=== PATIENT | male | born 1975 ===

== ENCOUNTER → 2021-03-20 | Outpatient (CLI) | payer OTHER ==
[~2021-03-20] MED LIST: AMLO-186 PO; OMEP20CA16 PO; VALS160T3 PO
== END ==
LOC: LAB 13:23
PROVIDERS: ATTEND Surgery
DX: Z01.812 Encounter for preprocedural laboratory examination (principal); Z20.822 Contact with and (suspected) exposure to COVID-19
CPT/HCPCS: U0003

== ENCOUNTER → 2021-03-25 | Day surgery (SDC) | payer OTHER ==
[~2021-03-25] MED LIST changes: +ACETAMINOPHEN 500 MG TABLET PO ONE; +BUPIVACAINE-EPI 0.25%-1:200000 MPF 30 ML VIAL. INJ ONE; +DEXAMETHASONE SOD PHOS 20 MG/5 ML VIAL. ONE; +GLYCOPYRROLATE 1 MG/5 ML VIAL. ONE; +IPRATRPIUM/ALBUTEROL 0.5/2.5MG 3 ML NEBU. NEB PRN; +IV RINGERS SOLUTION,LACTATED 1,000 ML IV SCH; +LIDOCAINE 2% PF 5 ML VIAL. ONE; +MIDAZOLAM HCL PF 2 MG/2 ML VIAL. IV ONE; +MIDAZOLAM HCL PF 2 MG/2 ML VIAL. ONE; +NEOSTIGMINE 10 MG/10 ML VIAL. ONE; +ONDANSETRON PF 4 MG/2 ML VIAL. IV PRN; +ONDANSETRON PF 4 MG/2 ML VIAL. ONE; +OXYC-325 PO; +PROPOFOL 10,000 MCG/ML (20ML) VIAL IV ONE; +ROCURONIUM 50 MG/5 ML VIAL. ONE; +SEVOFLURANE 31 TO 60 MINUTES. IH ONE
--- NOTE | 2021-03-25 11:22 | PDOC4 ---
Operative Report DATE March 252021-05-02 Preop Diagnosis Umbilical hernia Post-op Diagnosis Same Operation Performed Umbilical hernia repair Patient is a 46-year-old male is an umbilical hernia. Procedure umbilical hernia repairs explained to the patient detail risk benefits were also discussed including bleeding infection alternatives to this procedure also discussed with the patient who seemed to understand and gave a verbal written consent had procedure performed. Patient was taken to the operating room placed in the supine position general anesthesia was initiated once patient was sleeping intubated his abdomen was prepped and draped usual sterile fashion using ChloraPrep. Area around the umbilicus was injected quarter percent Marcaine with epinephrine incision was made with 15 blade scalpel is carried down through the subcutaneous tissue using electrocautery right hemostasis freeing up the hernia sac which was excised and sent for pathology. Hernia defect was then closed with a [id number] 0 Vicryl suture. Deep subcutaneous layer was closed with a running 3-0 Vicryl and the skin was reapproximated for subcuticular Monocryl Mastisol Steri-Strips and island dressings were applied. Patient was awakened and extubated in the operating room taken to recovery in stable condition all sponge instrument needle counts listed as correct estimated blood loss 5 mL Surgeon Tavo ANESTHESIA PROPOSED: GENERAL, LOCAL Blood Loss 5 mL Specimen Hernia sac and contents Complications None MIRA BRADFORD MD Mar 25, 2021 11:22
--- NOTE | 2021-03-25 11:32 | DISCH ---
DISCHARGE INSTRUCTIONS-DC Condition on Discharge Condition on Discharge: Stable Activity after Discharge Activity Instructions for Disc: Avoid exertion Diet after Discharge Diet after Discharge: Regular Wound/Incision Care Other wound/incision instructi: May shower in 24 hours Contacting the DRAnselmo after DC Call your doctor for: If your condition worsens Follow-Up Follow up with: Dr. Bradford in 2 weeks MIRA BRADFORD MD Mar 25, 2021 11:32
[2021-03-25 12:29] VITALS: BP 137/86
--- NOTE | 2021-03-27 17:09 | PATHOLOGY ---
[facility] Accession Number: [id number] . 01 Material submitted: . umbilicus - HERNIA CONTENTS . 01 Clinical history: . UMBILICAL HERNIA REPAIR NO MESH . 02 Diagnosis: Segment of mesothelial-lined fibromembranous/fibroadipose tissue and separate segment of fibroadipose tissue, umbilical hernia repair: - Hernia sac showing focal chronic inflammation. 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 (JPM:osmar; 03/27/2021) [facility] 03/27/2021 1215 Local . 02 Electronically signed: . Will Kwan MD, Pathologist NPI- [id number] . 01 Gross description: . Fixative: Formalin Labeled: Hernia contents Specimen received: Fibromembranous and fibroadipose light lizarraga-yellow tissue Dimensions: 2.3 x 2.2 x 0.3 cm Abnormalities: None identified Submitted representatively in cassette A1. . Also received within the specimen container is a section of pale lizarraga and smooth tissue measuring 1.4 x 1.1 x 0.9 cm in greatest dimensions. Sectioning reveals a intact cystic structure filled with light yellow rubbery material measuring 0.9 cm. The specimen is serially sectioned and submitted representatively in cassette A2.([facility] [place]; 03/26/2021) [facility] 03/26/2021 1054 Local . 02 Pathologist provided ICD-10: K42.9 . 02 CPT . 546889 Specimen Comment: A courtesy copy of this report has been sent to [phone] Specimen Comment: Report sent to Performed at: [address], [place], [place] [id number] MD Denton Vuong MD Phone: [phone] Performed at: 02 [facility] [address] [place], [place] [id number] MD Will Kwan MD Phone: [phone]
== END | disposition home or self-care (01) ==
LOC: SURG 09:04
PROVIDERS: ATTEND Surgery
DX: K42.9 Umbilical hernia without obstruction or gangrene (principal); I10 Essential (primary) hypertension; E78.00 Pure hypercholesterolemia, unspecified; K21.9 Gastro-esophageal reflux disease without esophagitis; Z98.890 Other specified postprocedural states; Z79.899 Other long term (current) drug therapy; Z88.8 Allergy status to other drugs, medicaments and biological substances
CPT/HCPCS: 49585; J1100; J2001; J2250; J2405; J2704; J2710; J3010; J3490; J7120; 88302